=== PATIENT | female | born 1990 | race Caucasian/White ===

== ENCOUNTER 2016-08-04 10:32 | Emergency (ER) | payer MEDICAID ==
[~2016-08-04] VITALS: Ht 157.5 cm; Wt 56.2 kg
[2016-08-04 10:35] VITALS: BP 114/66
== END 2016-08-04 11:31 | disposition home or self-care (01) ==
LOC: ED 10:32
DX: J02.9 Acute pharyngitis, unspecified (principal); R51 Headache
CPT/HCPCS: J0295

== ENCOUNTER 2018-01-16 18:20 | Emergency (ER) | payer MEDICAID ==
[~2018-01-16] VITALS: Ht 157.5 cm; Wt 64.9 kg
[2018-01-16 18:24] VITALS: Ht 157.5 cm; Wt 64.9 kg
[2018-01-16 18:55] VITALS: BP 136/69
[2018-01-16 19:38] LABS: UA SPECIFIC GRAVITY 1.025 (1.005-1.035); microscopic required? YES; urine erythrocyte 2+ (NEGATIVE)
== END 2018-01-16 18:55 | disposition home or self-care (01) ==
LOC: ED 18:20
PROVIDERS: Emergency Medicine
DX: R33.9 Retention of urine, unspecified (principal); R30.0 Dysuria; R39.15 Urgency of urination; R35.0 Frequency of micturition
CPT/HCPCS: 87491; 87591

== ENCOUNTER 2018-03-13 14:50 | Emergency (ER) | payer MEDICAID ==
[~2018-03-13] VITALS: Ht 157.5 cm; Wt 63.0 kg
[2018-03-13 15:07] VITALS: BP 138/65; Ht 157.5 cm; Wt 63.0 kg
== END 2018-03-13 18:47 | disposition left against medical advice (07) ==
LOC: ED 14:50
DX: Z53.21 Procedure and treatment not carried out due to patient leaving prior to being seen by health care provider (principal)

== ENCOUNTER 2018-05-19 01:53 | Emergency (ER) | payer MEDICAID ==
[~2018-05-19] VITALS: Ht 157.5 cm; Wt 63.5 kg
[2018-05-19 02:05] VITALS: Ht 157.5 cm; Wt 63.5 kg
[2018-05-19 04:05] VITALS: BP 114/72
== END 2018-05-19 04:06 | disposition home or self-care (01) ==
LOC: ED 01:53
DX: S62.654A Nondisplaced fracture of middle phalanx of right ring finger, initial encounter for closed fracture (principal); W26.8XXA Contact with other sharp object(s), not elsewhere classified, initial encounter; Y93.68 Activity, volleyball (beach) (court); Y92.89 Other specified places as the place of occurrence of the external cause; Y99.8 Other external cause status
CPT/HCPCS: A4570; Q0092

== ENCOUNTER 2018-08-10 11:10 | Emergency (ER) | payer MEDICAID ==
[~2018-08-10] VITALS: Ht 157.5 cm; Wt 64.9 kg
[2018-08-10 11:16] VITALS: BP 106/76; Ht 157.5 cm; Wt 64.9 kg
== END 2018-08-10 12:14 | disposition home or self-care (01) ==
LOC: ED 11:10
DX: J02.9 Acute pharyngitis, unspecified (principal); H92.03 Otalgia, bilateral; R19.7 Diarrhea, unspecified